=== PATIENT | female | born 1975 | race Caucasian/White ===

== ENCOUNTER 2021-05-03 09:38 | Outpatient (CLI) | payer OTHER | END 2021-05-03 09:57 | disposition home or self-care (01) | LOC: MAMO-SONO 09:38 | PROVIDERS: ATTEND Specialist | DX: N63.0 Unspecified lump in unspecified breast (principal); Z12.31 Encounter for screening mammogram for malignant neoplasm of breast ==

== ENCOUNTER 2022-05-01 07:40 | Outpatient (CLI) | payer OTHER | END 2022-05-01 07:54 | disposition home or self-care (01) | LOC: MAMO-SONO 07:40 | PROVIDERS: ATTEND Surgery | DX: N60.11 Diffuse cystic mastopathy of right breast (principal); N60.12 Diffuse cystic mastopathy of left breast ==

== ENCOUNTER 2023-11-15 05:26 | Emergency (ER) | payer OTHER ==
[~2023-11-15] VITALS: Ht 147.3 cm; Wt 56.7 kg
[2023-11-15 06:50] LABS: HEMATOCRIT 43.1 % (36.0-45.00); HEMOGLOBIN 14.4 g/dL (12.0-15.00); MEAN CELL VOLUME 86.2 fL (80.00-100.00); MEAN CORPUSCULAR HEMOGLOBIN 28.8 pg (27.00-32.0); MEAN CORPUSCULAR HGB CONC 33.4 g/dl (32.0-36.0); PLATELET COUNT 849 K/uL (150-450)
[2023-11-15 06:55] LABS: ALBUMIN 4.4 gm/dL (3.4-5.0); BILIRUBIN TOTAL 0.44 mg/dL (0.3-1.2); CALCIUM 9.2 mg/dL (8.5-10.1); CREATININE SERUM 0.76 mg/dL (0.55-1.02); GFR 80.55; GLOBULINA 3.8 G/DL (2.4-3.5); POTASSIUM 3.94 mEq/L (3.5-5.1); TOTAL PROTEIN 8.2 gm/dL (6.4-8.2)
== END 2023-11-15 08:16 | disposition home or self-care (01) ==
LOC: ER
DX: R00.2 Palpitations (principal); N95.1 Menopausal and female climacteric states; Z91.048 Other nonmedicinal substance allergy status; Z20.822 Contact with and (suspected) exposure to COVID-19